=== PATIENT | male | born 1980 | race Hispanic/Latino ===

== ENCOUNTER 2020-11-26 11:24 | Emergency (ER) | payer OTHER, SELFPAY ==
[2020-11-26 16:57] LABS: SARS-CoV-2 PCR by NAA Not Detected (NotDetected)
== END 2020-11-26 12:35 | disposition home or self-care (01) ==
LOC: ERS 11:24
DX: R05 Cough (principal); R09.81 Nasal congestion; Z20.822 Contact with and (suspected) exposure to COVID-19
CPT/HCPCS: 99283; U0003; U0005